=== PATIENT | male | born 1980 | race Hispanic/Latino ===

== ENCOUNTER 2021-10-30 15:47 | Inpatient (IN) | payer SELFPAY ==
[~2021-10-30] VITALS: Ht 170.2 cm; Wt 113.0 kg
[2021-10-30] MEDS ORDERED: ONDANSETRON HCL INJ 2MG/ML 2ML 2 MG/ML VIAL IV STA (15:58)
[2021-10-30] MEDS ORDERED: SODIUM CHLORIDE 0.9% 1000ML 1,000 ML IV STA (15:58)
[2021-10-30 16:15] LABS: BASOPHILS # (AUTO) 0.1 (0.0-0.1); BASOPHILS % 0.8 % (0.0-1.0); EOSINOPHILS # (AUTO) 0.2 (0.0-0.4); EOSINOPHILS % 1.8 % (0.0-6.0); HEMATOCRIT 25.4 % (38.2-49.6); LYMPHOCYTES # (AUTO) 2.6 (1.0-3.2); LYMPHOCYTES % 24.6 % (18.0-39.1); MEAN CORPUSCULAR HEMOGLOBIN 15.4 pg (28-32); MEAN CORPUSCULAR HGB CONC 26.4 g/dL (31-35); MEAN CORPUSCULAR VOLUME 58.3 fL (81-99); MONOCYTES # (AUTO) 0.6 (0.2-0.8); MONOCYTES % 5.6 % (4.4-11.3); NEUTROPHILS % 66.9 % (38.7-80.0); PLATELET COUNT 518 x10e3/uL (140-360); RED BLOOD COUNT 4.36 x10e6/uL (4.3-5.7); RED CELL DISTRIBUTION WIDTH 20.3 % (11.7-14.4)
[2021-10-30 16:16] LABS: HEMOGLOBIN 6.7 g/dL (14.0-18.0)
[2021-10-30 16:20] LABS: INR 1.11; PROTHROMBIN TIME 15.2 seconds (11.9-14.5)
[2021-10-30 16:21] LABS: PARTIAL THROMBOPLASTIN TIME 27.2 seconds (23.8-35.5)
[2021-10-30 16:28] LABS: ALBUMIN/GLOBULIN RATIO 1.3 (0.8-2.0); ANION GAP 12.6 mmol/L (8-16); CALCIUM 8.4 mg/dL (8.4-10.2); CREATININE, SERUM 0.96 mg/dL (0.72-1.25); POTASSIUM 3.6 mmol/L (3.5-5.1)
[2021-10-30 16:34] LABS: CREATINE KINASE MB 0.9 ng/mL (0-5.0)
[2021-10-30] MEDS ORDERED: IOPAMIDOL 370 MG/ML 200 ML INFUS..BTL INJ ONE (16:43)
[2021-10-30] MEDS ORDERED: SODIUM CHLORIDE 0.9% 100 ML ONE (16:43)
[2021-10-30] MEDS: SODIUM CHLORIDE 0.9% 1000ML 1,000 ML IV SCH (18:06)
[2021-10-30 18:31] VITALS: BP 140/81
[2021-10-30 20:00] VITALS: BP 139/88
[2021-10-30] MEDS ORDERED: SODIUM CHLORIDE 0.9% 250ML 250 ML ONE (22:52)
[2021-10-30 23:16] LABS: BASOPHILS # (AUTO) 0.1 (0.0-0.1); BASOPHILS % 0.8 % (0.0-1.0); EOSINOPHILS # (AUTO) 0.3 (0.0-0.4); EOSINOPHILS % 2.7 % (0.0-6.0); HEMATOCRIT 23.1 % (38.2-49.6); LYMPHOCYTES # (AUTO) 2.6 (1.0-3.2); MEAN CORPUSCULAR HEMOGLOBIN 15.4 pg (28-32); MEAN CORPUSCULAR HGB CONC 26.4 g/dL (31-35); MEAN CORPUSCULAR VOLUME 58.3 fL (81-99); MONOCYTES # (AUTO) 0.7 (0.2-0.8); MONOCYTES % 7.1 % (4.4-11.3); PLATELET COUNT 436 x10e3/uL (140-360); RED BLOOD COUNT 3.96 x10e6/uL (4.3-5.7); RED CELL DISTRIBUTION WIDTH 20.3 % (11.7-14.4)
[2021-10-30 23:19] LABS: HEMOGLOBIN 6.1 g/dL (14.0-18.0)
[2021-10-30 23:39] LABS: % IRON SATURATION 2 % (15-50); IRON 11 ug/dL (65-175); TOTAL IRON BINDING CAPACITY 456 ug/dL (261-478); TRANSFERRIN 326 mg/dL (174-364)
[2021-10-31] VITALS: BP 120/69
[2021-10-31] MEDS ORDERED: SODIUM CHLORIDE 0.9% 250ML 250 ML ONE (04:01)
[2021-10-31] MEDS: SODIUM CHLORIDE 0.9% 1000ML 1,000 ML IV SCH ×3 (05:35→13:41)
[2021-10-31 08:15] VITALS: BP 118/73
[2021-10-31 09:11] VITALS: BP 118/73
[2021-10-31 10:26] LABS: HEMATOCRIT 28.4 % (38.2-49.6); HEMOGLOBIN 8.2 g/dL (14.0-18.0)
[2021-10-31 11:34] VITALS: BP 119/74
[2021-10-31 13:23] LABS: BASOPHILS # (AUTO) 0.1 (0.0-0.1); BASOPHILS % 1.3 % (0.0-1.0); EOSINOPHILS # (AUTO) 0.2 (0.0-0.4); EOSINOPHILS % 2.8 % (0.0-6.0); HEMATOCRIT 28.6 % (38.2-49.6); LYMPHOCYTES # (AUTO) 2.1 (1.0-3.2); LYMPHOCYTES % 25.9 % (18.0-39.1); MEAN CORPUSCULAR HEMOGLOBIN 17.5 pg (28-32); MEAN CORPUSCULAR VOLUME 62.4 fL (81-99); MONOCYTES # (AUTO) 0.6 (0.2-0.8); MONOCYTES % 7.5 % (4.4-11.3); NEUTROPHILS # (AUTO) 4.9 (2.1-6.9); NEUTROPHILS % 62.2 % (38.7-80.0); PLATELET COUNT 457 x10e3/uL (140-360); RED BLOOD COUNT 4.58 x10e6/uL (4.3-5.7); RED CELL DISTRIBUTION WIDTH 25.4 % (11.7-14.4)
[2021-10-31 16:41] VITALS: BP 112/74
[2021-10-31 18:48] LABS: BASOPHILS # (AUTO) 0.1 (0.0-0.1); BASOPHILS % 0.7 % (0.0-1.0); EOSINOPHILS # (AUTO) 0.2 (0.0-0.4); EOSINOPHILS % 1.9 % (0.0-6.0); HEMOGLOBIN 8.1 g/dL (14.0-18.0); LYMPHOCYTES # (AUTO) 2.2 (1.0-3.2); LYMPHOCYTES % 21.9 % (18.0-39.1); MEAN CORPUSCULAR HEMOGLOBIN 17.4 pg (28-32); MEAN CORPUSCULAR HGB CONC 27.9 g/dL (31-35); MEAN CORPUSCULAR VOLUME 62.2 fL (81-99); MONOCYTES # (AUTO) 0.6 (0.2-0.8); MONOCYTES % 6.1 % (4.4-11.3); PLATELET COUNT 442 x10e3/uL (140-360); RED BLOOD COUNT 4.66 x10e6/uL (4.3-5.7); RED CELL DISTRIBUTION WIDTH 25.3 % (11.7-14.4)
[2021-10-31 19:19] LABS: ALBUMIN/GLOBULIN RATIO 1.3 (0.8-2.0); CALCIUM 8.6 mg/dL (8.4-10.2); CREATININE, SERUM 0.82 mg/dL (0.72-1.25)
[2021-10-31 20:00] VITALS: BP 116/71
[2021-11-01] VITALS (8 sets, daily range): BP systolic 100–128; BP diastolic 57–84
[2021-11-01] MEDS ORDERED: BISACODYL 5 MG TAB EC PO ONE ×3 (00:15→01:30)
[2021-11-01] MEDS: SODIUM CHLORIDE 0.9% 1000ML 1,000 ML IV SCH ×3 (01:15→21:04)
[2021-11-01 04:52] LABS: HEMATOCRIT 29.5 % (38.2-49.6); MEAN CORPUSCULAR HEMOGLOBIN 17.1 pg (28-32); MEAN CORPUSCULAR HGB CONC 27.1 g/dL (31-35); MEAN CORPUSCULAR VOLUME 63.2 fL (81-99); PLATELET COUNT 443 x10e3/uL (140-360); RED BLOOD COUNT 4.67 x10e6/uL (4.3-5.7); RED CELL DISTRIBUTION WIDTH 25.5 % (11.7-14.4)
[2021-11-01] MEDS ORDERED: CITRATE OF MAGNESIA 300ML BOTTLE PO ONE ×2 (05:00→07:00)
[2021-11-01 07:16] LABS: EOSINOPHILS % (MANUAL) 4 % (0-7); LYMPHOCYTES % (MANUAL) 30 % (19-48); MONOCYTES % (MANUAL) 5 % (3.4-9.0); NEUTROPHILS % (MANUAL) 60 % (40-74)
[2021-11-01 07:17] LABS: PLATELET ESTIMATE SLIGHTLY INCREASED; PLATELET MORPHOLOGY COMMENT NORMAL; RBC MORPHOLOGY COMMENT ABNORMAL
[2021-11-01 07:18] LABS: ANISOCYTOSIS MODERATE; HYPOCHROMASIA MODERATE; MICROCYTOSIS SLIGHT; POIKILOCYTOSIS SLIGHT
[2021-11-01 07:19] LABS: ELLIPTOCYTE, RBC SLIGHT; OVALOCYTES FEW
[2021-11-01] MEDS: CYANOCOBALAMIN INJ 1,000 MCG/ML VIAL IM SCH (09:17)
[2021-11-01] MEDS: IRON SUCROSE 100 MG in SODIUM CHLORIDE 0.9% 100 ML 100 ML IV SCH (09:18)
[2021-11-01] MEDS ORDERED: MIDAZOLAM HCL 2 MG/2 ML VIAL ONE (13:56)
[2021-11-01] MEDS ORDERED: FENTANYL CITRATE/PF 100MCG/2 ML INJ ONE (13:56)
[2021-11-01] MEDS ORDERED: PROPOFOL IV EMULSION 10 MG/ML 20 ML VIAL ONE (14:01)
[2021-11-01] MEDS ORDERED: HYOSCYAMINE SULFATE 0.5 MG/ML INJ ONE ×2 (14:01→18:25)
[2021-11-01] MEDS ORDERED: LIDOCAINE HCL 2% LOCAL INJ 5 ML SDV VIAL INJ ONE (14:01)
[2021-11-01] MEDS ORDERED: HYDROCORTISONE ACETATE 25 MG/SUPP.RECT SUPP RC ONE (19:00)
[2021-11-01 20:26] LABS: HEMATOCRIT 29.9 % (38.2-49.6); HEMOGLOBIN 8.1 g/dL (14.0-18.0); MEAN CORPUSCULAR HEMOGLOBIN 17.1 pg (28-32); MEAN CORPUSCULAR HGB CONC 27.1 g/dL (31-35); MEAN CORPUSCULAR VOLUME 63.1 fL (81-99); PLATELET COUNT 429 x10e3/uL (140-360); RED BLOOD COUNT 4.74 x10e6/uL (4.3-5.7); RED CELL DISTRIBUTION WIDTH 25.6 % (11.7-14.4)
[2021-11-02] MEDS: SODIUM CHLORIDE 0.9% 1000ML 1,000 ML IV SCH ×2 (00:50→10:26)
[2021-11-02 04:00] VITALS: BP 98/47
[2021-11-02 05:48] LABS: HEMATOCRIT 28.6 % (38.2-49.6); HEMOGLOBIN 7.8 g/dL (14.0-18.0); MEAN CORPUSCULAR HEMOGLOBIN 17.4 pg (28-32); MEAN CORPUSCULAR HGB CONC 27.3 g/dL (31-35); MEAN CORPUSCULAR VOLUME 63.8 fL (81-99); PLATELET COUNT 401 x10e3/uL (140-360); RED BLOOD COUNT 4.48 x10e6/uL (4.3-5.7); RED CELL DISTRIBUTION WIDTH 26.3 % (11.7-14.4)
[2021-11-02 06:54] LABS: EOSINOPHILS % (MANUAL) 1 % (0-7); LYMPHOCYTES % (MANUAL) 16 % (19-48); MONOCYTES % (MANUAL) 5 % (3.4-9.0); NEUTROPHILS % (MANUAL) 78 % (40-74); PLATELET ESTIMATE ADEQUATE
[2021-11-02 06:55] LABS: ANISOCYTOSIS SLIGHT; HYPOCHROMASIA SLIGHT; MICROCYTOSIS MODERATE; PLATELET MORPHOLOGY COMMENT NORMAL; POLYCHROMASIA FEW; RBC MORPHOLOGY COMMENT ABNORMAL
[2021-11-02 06:56] LABS: ELLIPTOCYTE, RBC SLIGHT; OVALOCYTES FEW; POIKILOCYTOSIS SLIGHT
[2021-11-02 08:47] VITALS: BP 123/68
[2021-11-02] MEDS ORDERED: HYDROCORTISONE ACETATE 25 MG/SUPP.RECT SUPP RC SCH (09:00)
[2021-11-02] MEDS: IRON SUCROSE 100 MG in SODIUM CHLORIDE 0.9% 100 ML 100 ML IV SCH (10:26)
[2021-11-02] MEDS: CYANOCOBALAMIN INJ 1,000 MCG/ML VIAL IM SCH (10:26)
[2021-11-02 10:30] VITALS: BP 123/68
[2021-11-02 12:45] VITALS: BP 126/70
[2021-11-02] MEDS ORDERED: FERROUS SULFAT325 M1 PO (13:08)
[2021-11-02] MEDS ORDERED: ANUSOL-HC30 GM RC (13:10)
[2021-11-02] MEDS ORDERED: FOLIC ACID-VIT1 EACH PO (13:10)
== END 2021-11-02 14:10 | disposition home or self-care (01) | DRG 394 ==
LOC: ER 15:58 → ERHOLD 17:16 → MED/SURG 18:25
PROC: 0DBP8ZX Excision of Rectum, Via Natural or Artificial Opening Endoscopic, Diagnostic (ICD-10-PCS; principal; 2021-11-01 18:05)
DX: K64.8 Other hemorrhoids (principal); D62 Acute posthemorrhagic anemia; E11.9 Type 2 diabetes mellitus without complications; F17.210 Nicotine dependence, cigarettes, uncomplicated; Z72.89 Other problems related to lifestyle; K57.30 Diverticulosis of large intestine without perforation or abscess without bleeding; Z20.822 Contact with and (suspected) exposure to COVID-19
CPT/HCPCS: 36415; 45384; 74174; 80053; 82550; 82553; 82607; 82746; 82948; 83540; 84466; 84484; 85007; 85014; 85018; 85025; 85027; 85045; 85610; 85730; 86850; 86870; 86880; 86900; 86905; 86920; 88305; 93005; 99001; 99284; J1756; J1980; J2001; J2250; J2405; J3010; J3420; J7030; J7050; P9016; Q9967; U0002